=== PATIENT | male | born 1990 | race African-American/Black ===

== ENCOUNTER 2017-10-18 07:40 | Emergency (ER) | payer MEDICAID, OTHER ==
[~2017-10-18] VITALS: Ht 175.3 cm; Wt 70.0 kg
[~2017-10-18 07:40] MED LIST: ALBU25PO2
[2017-10-18 07:42] VITALS: BP 120/75
[2017-10-18] MEDS ORDERED: KETOROLAC 30MG/ML VIAL IV STA (08:32)
[2017-10-18] MEDS ORDERED: ONDANSETRON HCL 4MG/2ML VIAL IV STA (08:32)
[2017-10-18] MEDS ORDERED: FAMOTIDINE 20MG/2ML VIAL IV STA (08:32)
[2017-10-18] MEDS ORDERED: SODIUM CHLORIDE 0.9% 1,000 ML IV ONE ×2 (08:32→09:50)
[2017-10-18 08:46] LABS: BASOPHILS % 0.7 % (0.0-2.0); EOSINOPHILS % 0.1 % (0.0-5.0); HEMATOCRIT. 42.1 % (42.0-52.0); HEMOGLOBIN. 13.9 g/dL (14.0-18.0); LYMPHOCYTES % 10.2 % (20.0-50.0); MEAN CORPUSCULAR HEMOGLOBIN 27.1 pg (28.0-32.0); MEAN PLATELET VOLUME 8.1 fl (7.4-10.4); PLATELET 191 x1000/uL (130-400); RED BLOOD CELL COUNT 5.13 mill/uL (4.7-6.1)
[2017-10-18 09:03] LABS: CARBON DIOXIDE 21 mEq/L (21-32); CHLORIDE 108 mEq/L (98-107)
[2017-10-18 09:19] LABS: CLARITY URINE CLEAR (CLEAR); COLOR URINE YELLOW (YELLOW); KETONES URINE 4+ (NEGATIVE); LEUKOCYTE ESTERASE URINE NEGATIVE (NEGATIVE); NITRITE URINE NEGATIVE (NEGATIVE); OCCULT BLOOD URINE NEGATIVE (NEGATIVE); PROTEIN URINE 1+ (NEGATIVE); SPECIFIC GRAVITY URINE 1.035 (1.005-1.030); UROBILINOGEN URINE 0.2 E.U./dL (0.2-1.0)
[2017-10-18 09:40] LABS: *AMPHETAMINES SCREEN URINE NEGATIVE (NEGATIVE); *BARBITURATES SCREEN URINE NEGATIVE (NEGATIVE); *BENZODIAZEPINES SCREEN URINE NEGATIVE (NEGATIVE); *COCAINE SCREEN URINE NEGATIVE (NEGATIVE); CANNABINOID URINE SCREEN PRESUMTIVE POSITIVE (NEGATIVE); METHADONE URINE SCREEN NEGATIVE (NEGATIVE); OPIATES URINE SCREEN NEGATIVE (NEGATIVE); PHENCYCLIDINE URINE SCREEN NEGATIVE (NEGATIVE)
[2017-10-18] MEDS ORDERED: IOHEXOL-300 100 ML BOTTLE ONE (09:46)
[2017-10-18] MEDS ORDERED: POTASSIUM CHLORIDE 20MEQ TABLET SR PO ONE (10:30)
== END 2017-10-18 11:13 | disposition home or self-care (01) ==
LOC: ER 07:51
DX: R10.9 Unspecified abdominal pain (principal); R11.2 Nausea with vomiting, unspecified
CPT/HCPCS: 36415; 74177; 80053; 80305; 81001; 83690; 85025; 96361; 96374; 96375; 99285; J1885; J2405; J3490; J7030; Q9967; Z7610

== ENCOUNTER 2017-10-18 22:44 | Emergency (ER) | payer OTHER ==
[~2017-10-18] VITALS: Ht 170.2 cm; Wt 61.0 kg
[2017-10-19] MEDS ORDERED: ONDANSETRON HCL 4MG/2ML VIAL IV STA (01:35)
[2017-10-19] MEDS ORDERED: SODIUM CHLORIDE 0.9% 1,000 ML IV ONE ×2 (01:35→04:05)
[2017-10-19] MEDS ORDERED: FAMOTIDINE 20MG/2ML VIAL IV STA (01:35)
[2017-10-19] MEDS ORDERED: MORPHINE SULFATE 4 MG/ML CPJ (NOT FOR IM USE) IV STA (01:35)
[2017-10-19] MEDS ORDERED: MAGNESIUM/ALUMINUM HYDROXIDE/SIMETHICONE 30ML UDC PO STA (01:39)
[2017-10-19] MEDS ORDERED: DICYCLOMINE 10 MG/5 ML ORAL SYR PO STA (01:39)
[2017-10-19] MEDS ORDERED: VISCOUS LIDOCAINE 2% 15 ML UDC PO STA (01:39)
[2017-10-19] MEDS ORDERED: ONDANSETRON HCL 4MG/2ML VIAL IV ONE (02:30)
[2017-10-19 04:25] VITALS: BP 137/88
== END 2017-10-19 04:27 | disposition home or self-care (01) ==
LOC: ER 22:44
DX: R10.13 Epigastric pain (principal); R11.2 Nausea with vomiting, unspecified; R19.7 Diarrhea, unspecified; J45.909 Unspecified asthma, uncomplicated
CPT/HCPCS: 96361; 96374; 99284; J2405; J7030; Z7610

== ENCOUNTER 2018-09-11 09:39 | Emergency (ER) | payer MEDICAID, OTHER ==
[~2018-09-11] VITALS: Ht 172.7 cm; Wt 73.0 kg
[2018-09-11] MEDS ORDERED: ONDANSETRON HCL 4MG/2ML INJ IV STA (09:55)
[2018-09-11] MEDS ORDERED: SODIUM CHLORIDE 0.9% 1,000 ML IV ONE (09:55)
[2018-09-11 10:21] LABS: EOSINOPHILS % 0.7 % (0.0-5.0); HEMATOCRIT. 48.4 % (42.0-52.0); LYMPHOCYTES % 11.3 % (20.0-50.0); MEAN CORPUSCULAR VOLUME 84.8 fL (80.0-94.0); MEAN PLATELET VOLUME 8.4 fl (7.4-10.4); PLATELET 266 x1000/uL (130-400); RED BLOOD CELL COUNT 5.71 mill/uL (4.7-6.1); RED CELL DISTRIBUTION WIDTH 13.9 % (11.6-14.6)
[2018-09-11 10:29] LABS: CHLORIDE 106 mEq/L (98-107); PROTHROMBIN TIME 10.3 sec (9.1-11.1)
[2018-09-11] MEDS ORDERED: MAGNESIUM/ALUMINUM HYDROXIDE/SIMETHICONE 30ML UDC PO STA (10:31)
[2018-09-11] MEDS ORDERED: FAMOTIDINE 20MG/2ML VIAL IV STA (10:31)
[2018-09-11 12:31] LABS: CLARITY URINE CLEAR (CLEAR); COLOR URINE YELLOW (YELLOW); KETONES URINE 1+ (NEGATIVE); LEUKOCYTE ESTERASE URINE NEGATIVE (NEGATIVE); NITRITE URINE NEGATIVE (NEGATIVE); OCCULT BLOOD URINE NEGATIVE (NEGATIVE); PROTEIN URINE NEGATIVE (NEGATIVE); SPECIFIC GRAVITY URINE 1.025 (1.005-1.030); UROBILINOGEN URINE 0.2 E.U./dL (0.2-1.0)
[2018-09-11] MEDS ORDERED: ONDANSETRON 4MG ODT PO ONE (13:30)
[2018-09-11 14:03] VITALS: BP 112/62
== END 2018-09-11 14:05 | disposition home or self-care (01) ==
LOC: ER 09:39
DX: R10.13 Epigastric pain (principal); R42 Dizziness and giddiness; D72.829 Elevated white blood cell count, unspecified; J45.909 Unspecified asthma, uncomplicated; Z87.11 Personal history of peptic ulcer disease; Z98.890 Other specified postprocedural states
CPT/HCPCS: 36415; 80053; 81003; 82962; 83690; 85025; 85610; 96361; 96374; 96375; 99285; J2405; J3490; J7030; Q0162

== ENCOUNTER 2019-11-18 17:35 | Emergency (ER) | payer MEDICAID ==
[~2019-11-18] VITALS: Ht 170.2 cm; Wt 85.0 kg
[2019-11-18] MEDS ORDERED: KETOROLAC 60MG/2ML VIAL IM ONE (19:30)
[2019-11-18 20:28] VITALS: BP 132/81
== END 2019-11-18 20:31 | disposition home or self-care (01) ==
LOC: ER 17:35
DX: K13.0 Diseases of lips (principal); J45.909 Unspecified asthma, uncomplicated; F12.10 Cannabis abuse, uncomplicated; F17.210 Nicotine dependence, cigarettes, uncomplicated
CPT/HCPCS: 96372; 99283; J1885

== ENCOUNTER 2019-11-19 15:49 | Emergency (ER) | payer MEDICAID ==
[2019-11-19 16:22] VITALS: BP 121/62
[2019-11-19] MEDS ORDERED: HYDROCODONE/ACETAMINOPHEN 5/325MG TABLET PO ONE (19:15)
== END 2019-11-19 19:34 | disposition home or self-care (01) ==
LOC: ER 15:49
DX: K13.0 Diseases of lips (principal)
CPT/HCPCS: 99282

== ENCOUNTER 2021-11-17 11:20 | Emergency (ER) | payer MEDICAID ==
[~2021-11-17] VITALS: Ht 172.7 cm; Wt 90.0 kg
[2021-11-17 11:32] VITALS: BP 122/73
[2021-11-17] MEDS ORDERED: VISCOUS LIDOCAINE 2% 15 ML UDC PO STA (11:44)
[2021-11-17] MEDS ORDERED: MAGNESIUM/ALUMINUM HYDROXIDE/SIMETHICONE 30ML UDC PO STA (11:44)
[2021-11-17] MEDS ORDERED: FAMOTIDINE 20MG TABLET PO ONE (13:30)
[2021-11-17 13:37] LABS: HEMATOCRIT. 43.2 % (42.0-52.0); HEMOGLOBIN. 14.5 g/dL (14.0-18.0); MEAN CORPUSCULAR HEMOGLOBIN 26.8 pg (28.0-32.0); MEAN CORPUSCULAR VOLUME 79.8 fL (80.0-94.0); MEAN PLATELET VOLUME 8.1 fl (7.4-10.4); PLATELET 237 x1000/uL (130-400); RED BLOOD CELL COUNT 5.41 mill/uL (4.7-6.1)
[2021-11-17 13:44] LABS: CHLORIDE 110 mEq/L (98-107)
[2021-11-17 14:17] LABS: NUCLEATED RED BLOOD CELLS 1 /100 WBC; PLATELET ESTIMATE NORMAL
== END 2021-11-17 18:11 | disposition home or self-care (01) ==
LOC: ER 12:03
DX: R10.13 Epigastric pain (principal); J45.909 Unspecified asthma, uncomplicated
CPT/HCPCS: 36415; 71045; 80053; 84484; 85025; 93005; 99285